=== PATIENT | female | born 1990 | race American Indian/Alaskan Native ===

== ENCOUNTER 2017-01-10 15:27 | Emergency (ER) | payer OTHER ==
[2017-01-10] MEDS ORDERED: MOTRIN PO ONE (16:43)
--- NOTE | 2017-01-10 17:41 | Emergency Department Report ---
ED Extremity Problem HPI - General Chief complaint: Extremity Injury, Lower Stated complaint: RT ANKLE INJURY Time Seen by Provider: 01/10/17 16:36 Source: patient Mode of arrival: Wheelchair Limitations: No Limitations - History of Present Illness Initial comments: PT c/o R ankle injury. 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 Pt states she twisted her ankle/ landed wrong. PT states immediate after she was able to ambulate but at this time she can not walk on her R foot. PT states she has tried elevation and ice for the pain but no improvement. PT denies other injuries. MD Complaint: joint paint -: Sudden, hour(s) Location: right, lower extremity, other (ankle ) History of Same: No Severity scale (0 -10): 10 Quality: sharp Consistency: constant Improves with: nothing Worsens with: weight bearing, walking, palpation Associated Symptoms: denies other symptoms - Related Data Previous Rx's Medication Instructions Recorded Last Taken Type Ibuprofen [Motrin] 600 mg PO Q8H PRN #20 tablet 01/10/17 Unknown Rx traMADol [Ultram] 50 mg PO Q6HR PRN #12 tablet 01/10/17 Unknown Rx Allergies Allergy/AdvReac Type Severity Reaction Status Date / Time No Known Allergies Allergy Unverified 01/10/17 16:12 ED Review of Systems ROS: Stated complaint: RT ANKLE INJURY Other details as noted in HPI Comment: All other systems reviewed and negative Constitutional: denies: fever Musculoskeletal: joint swelling. denies: back pain Skin: change in color Neurological: abnormal gait. denies: numbness, paresthesias ED Past Medical Hx - Past Medical History Previous Medical History?: No - Surgical History Past Surgical History?: No - Social History Smoking Status: Never Smoker Substance Use Type: None - Medications Home Medications: Home Medications Medication Instructions Recorded Confirmed Last Taken Type Ibuprofen [Motrin] 600 mg PO Q8H PRN #20 tablet 01/10/17 Unknown Rx traMADol [Ultram] 50 mg PO Q6HR PRN #12 tablet 01/10/17 Unknown Rx ED Physical Exam - General Limitations: No Limitations General appearance: alert, other (appears in pain. ) - Head Head exam: Present: atraumatic, normocephalic, normal inspection - Eye Eye exam: Present: normal appearance, EOMI. Absent: conjunctival injection - ENT ENT exam: Present: normal exam, normal external ear exam - Neck Neck exam: Present: normal inspection, full ROM - Respiratory Respiratory exam: Present: normal lung sounds bilaterally. Absent: respiratory distress, wheezes, chest wall tenderness - Cardiovascular Cardiovascular Exam: Present: regular rate, normal rhythm, normal heart sounds - GI/Abdominal GI/Abdominal exam: Present: soft. Absent: tenderness - Extremities Exam Extremities exam: Present: tenderness, normal capillary refill, joint swelling, other (+2 DP ) - Expanded Lower Extremity Exam Right Knee exam: Present: normal inspection. Absent: tenderness Lower Leg exam: Present: normal inspection Ankle exam: Present: normal inspection, tenderness (to the medial malleolus ). Absent: full ROM, deformity, crepidus, dislocation Foot/Toe exam: Present: tenderness, swelling (to the dorsal foot ), ecchymosis, tenderness at base of 5th metatarsal. Absent: deformity, dislocation, nail avulsion - Back Exam Back exam: Present: normal inspection, full ROM - Neurological Exam Neurological exam: Present: alert, oriented X3, other (gait not observed due to lower ext injury) - Skin Skin exam: Present: warm, dry, intact, ecchymosis ED Course Vital Signs 01/10/17 16:10 Temperature 98.3 F Pulse Rate 65 Respiratory 18 Rate Blood Pressure 120/83 O2 Sat by Pulse 100 Oximetry - Reevaluation(s) Reevaluation #1: 01/10/17 20:08 PT aware of XR results. PT states pain decreased sp Motrin. PT aware she may need repeat XRs in 7- 10 days. PT verbalizes understanding. Reevaluation #2: 01/10/17 20:50 PT placed in splint by nurse. PT NVI. PT reports decrease in pain sp splint - Pulse Oximetry Interpretation Digit-Finger Initial Pulse Oximetry Readin Actions Taken: none ED Medical Decision Making - Radiology Data Radiology results: report reviewed, image reviewed XR foot- NAP XR Ankle- NAP - Differential Diagnosis fracture, sprain, contusion Critical Care Time: No Critical care attestation.: If time is entered above; I have spent that time in minutes in the direct care of this critically ill patient, excluding procedure time. ED Disposition Clinical Impression: Contusion of right foot Qualifiers: Encounter type: initial encounter Qualified Code(s): S90.31XA - Contusion of right foot, initial encounter Right ankle sprain Qualifiers: Encounter type: initial encounter Involved ligament of ankle: unspecified ligament Qualified Code(s): S93.401A - Sprain of unspecified ligament of right ankle, initial encounter Disposition: DISCHARGED TO HOME OR SELFCARE Is pt being admited?: No Does the pt Need Aspirin: No Condition: Stable Instructions: Ankle Sprain (ED), Crutch Instructions (ED), Contusion in Adults (ED), Foot Contusion (ED), Ankle Stirrup Splint (ED), RICE Therapy (ED) Additional Instructions: No driving or ETOH After Ultram Prescriptions: Ibuprofen [Motrin] 600 mg PO Q8H PRN #20 tablet PRN Reason: Pain traMADol [Ultram] 50 mg PO Q6HR PRN #12 tablet PRN Reason: Pain Referrals: PRIMARY CAREMD [Primary Care Provider] - 3-5 Days OLIVIA AVINA MD [Staff Physician] - 3-5 Days TEJINDER WEINER MD [Staff Physician] - 3-5 Days Time of Disposition: 20:09
--- NOTE | 2017-01-10 19:44 | XRay Report ---
FINAL REPORT EXAM: XR ANKLE 3 RT HISTORY: right ankle injury, w/ pain and swelling TECHNIQUE: Right ankle three views 3 images PRIORS: None. FINDINGS: Bone mineralization appears within normal limits. No acute fracture or subluxation is identified. No gross abnormality is seen in the soft tissues. IMPRESSION: 1. No acute osseous abnormality is identified.
--- NOTE | 2017-01-10 19:45 | XRay Report ---
FINAL REPORT EXAM: XR FOOT 3 RT HISTORY: pain and tenderness TECHNIQUE: Right foot three views 3 images PRIORS: None. FINDINGS: Bone mineralization appears within normal limits. No acute fracture is identified. Hallux valgus is noted. No gross abnormality is seen in the soft tissues. IMPRESSION: 1. No acute fracture is identified. If symptoms persist, consider repeat study in 10-14 days to assess for a currently radiographically occult fracture. 2. Hallux valgus is noted.
[2017-01-10 20:59] VITALS: BP 127/79
== END 2017-01-10 20:50 | disposition home or self-care (01) ==
LOC: ED 15:27
DX: S93.401A Sprain of unspecified ligament of right ankle, initial encounter (principal); S90.31XA Contusion of right foot, initial encounter; X58.XXXA Exposure to other specified factors, initial encounter; Y93.89 Activity, other specified; Y99.8 Other external cause status; Y92.218 Other school as the place of occurrence of the external cause